=== PATIENT | male | born 1995 | race Two or more races ===

== ENCOUNTER 2023-07-26 16:47 | Emergency (ER) | payer OTHER ==
[~2023-07-26] VITALS: Ht 185.4 cm; Wt 92.5 kg
[2023-07-26 17:30] VITALS: PULSE 73; RESP 15; O2SAT 98
[2023-07-26] MEDS: KETOROLAC TROMETH 30 MG/ML 1ML VIAL IV ONE (18:04)
[2023-07-26 19:15] VITALS: PULSE 65; RESP 10; TEMP 98.4; O2SAT 99
[2023-07-26] MEDS: KETAMINE 50mg/ML 10ml Vial (500mg/10ml) IV ONE (20:00)
[2023-07-26] MEDS: fentaNYL CITRATE 100 MCG/2 ML VL IV ONE (20:05)
[2023-07-26 20:10] VITALS: O2SAT 97
[2023-07-26 20:35] VITALS: BP 126/70; RESP 12
[2023-07-26 21:04] VITALS: PULSE 78
[2023-07-26] MEDS ORDERED: IBUP-1455 PO (21:08)
[2023-07-26] MEDS ORDERED: ACET500T58 PO (21:08)
== END 2023-07-26 21:30 | disposition home or self-care (01) ==
LOC: ER 16:47
DX: S43.004A Unspecified dislocation of right shoulder joint, initial encounter (principal); W18.09XA Striking against other object with subsequent fall, initial encounter; Y93.89 Activity, other specified; Y92.89 Other specified places as the place of occurrence of the external cause; Y99.8 Other external cause status
CPT/HCPCS: 23650; 73020; 73030; 96374; 99152; 99153; 99285; J1885; J3010; 96375